=== PATIENT | female | born 1985 | race Caucasian/White ===

== ENCOUNTER 2016-11-23 13:31 | Day surgery (SDC) | payer OTHER ==
[~2016-11-23] VITALS: Ht 160 cm; Wt 93.9 kg
[~2016-11-23 13:31] MED LIST: No meds per pt.
[2016-11-23 13:56] VITALS: BP 119/78
[2016-11-23] MEDS ORDERED: LACTATED RINGERS 1,000 ML IV SCH (14:00)
[2016-11-23 14:26] LABS: HCG UR OBC PASS
[2016-11-23] MEDS ORDERED: SILVER NITRATE STICK TP ONE (14:33)
[2016-11-23] MEDS ORDERED: LIDOCAINE/PF 1.5%-EPI 1:200K, 30ML ONE (14:33)
[2016-11-23] MEDS ORDERED: VASOPRESSIN 20 UNIT/ML, 1ML ONE (14:33)
[2016-11-23] MEDS ORDERED: FENTANYL PF 100 MCG/2ML ONE ×2 (15:21→16:40)
[2016-11-23] MEDS ORDERED: MIDAZOLAM 1 MG/ML, 2ML ONE (15:21)
[2016-11-23] MEDS ORDERED: PROMETHAZINE 25 MG/ML, 1ML IV PRN (15:30)
[2016-11-23] MEDS ORDERED: MIDAZOLAM 1 MG/ML, 2ML IV PRN (15:30)
[2016-11-23] MEDS ORDERED: HYDROcodone/APAP 7.5-325MG/15ML UDC PO PRN (15:30)
[2016-11-23] MEDS ORDERED: HYDROmorphone 1 MG/ML, 1ML IV PRN (15:30)
[2016-11-23] MEDS ORDERED: ALBUTEROL SULFATE 2.5 MG/3 ML NPPB PRN (15:30)
[2016-11-23] MEDS ORDERED: METOCLOPRAMIDE 5 MG/ML, 2ML IV PRN (15:30)
[2016-11-23] MEDS ORDERED: ONDANSETRON 2MG/ML, 2ML IVPush PRN (15:30)
[2016-11-23] MEDS ORDERED: hydrALAzine 20 MG/ML, 1ML IV PRN (15:30)
[2016-11-23] MEDS ORDERED: ACETAMINOPHEN 325 MG TABLET PO PRN (15:30)
[2016-11-23] MEDS ORDERED: EPHEDRINE 50 MG/ML, 1ML IVPush PRN (15:30)
[2016-11-23] MEDS ORDERED: LABETALOL 5MG/ML, 20ML IV PRN (15:30)
[2016-11-23] MEDS ORDERED: GLYCOPYRROLATE 0.2MG/1ML ONE (15:46)
[2016-11-23] MEDS ORDERED: SUCCINYLCHOLINE 20 MG/ML, 10ML ONE (15:46)
[2016-11-23] MEDS ORDERED: ROCURONIUM 10 MG/ML ONE (15:46)
[2016-11-23] MEDS ORDERED: ONDANSETRON 2MG/ML, 2ML ONE (15:46)
[2016-11-23] MEDS ORDERED: DEXAMETHASONE 4 MG/ML, 1ML ONE (15:46)
[2016-11-23] MEDS ORDERED: PROPOFOL 10 MG/ML, 20ML ONE (15:46)
[2016-11-23] MEDS ORDERED: PROMETHAZINE 25 MG/ML, 1ML ONE (16:40)
[2016-11-23] MEDS ORDERED: HYDROcodone/APAP 7.5-325MG/15ML UDC ONE (16:55)
[2016-11-23] MEDS: FENTANYL PF 100 MCG/2ML IV PRN ×2 (16:55→17:00)
== END 2016-11-23 18:15 ==
LOC: OUT 13:31
PROVIDERS: ATTEND Specialist
DX: N84.0 Polyp of corpus uteri (principal); Z88.1 Allergy status to other antibiotic agents; Z88.0 Allergy status to penicillin; Z88.8 Allergy status to other drugs, medicaments and biological substances
CPT/HCPCS: 58558; 81025; 88305; J0330; J1100; J2250; J2405; J2550; J2704; J3010; J7120; J3490

== ENCOUNTER 2017-11-05 15:49 | Emergency (ER) | payer OTHER ==
[~2017-11-05] VITALS: Ht 160 cm; Wt 88.4 kg
[2017-11-05 16:46] LABS: BASOPHILS # (AUTO) 0.04 x10^3/uL (0-0.1); BASOPHILS % (AUTO) 0 % (0-1); EOSINOPHILS # (AUTO) 0.09 x10^3/uL (0-0.4); EOSINOPHILS % (AUTO) 1 % (1-7); LYMPHOCYTES # (AUTO) 2.31 x10^3/uL (1-3.4); LYMPHOCYTES % (AUTO) 19 % (22-44); MD NO; MEAN CORPUSCULAR HEMOGLOBIN 31.4 pg (27.0-34.8); MEAN CORPUSCULAR HGB CONC 34.4 g/dL (32.4-35.8); MEAN CORPUSCULAR VOLUME 91.2 fL (80-100); MONOCYTES # (AUTO) 0.63 x10^3/uL (0.2-0.8); MONOCYTES % (AUTO) 5 % (2-9); NEUTROPHILS # (AUTO) 8.85 x10^3/uL (1.8-6.8); NEUTROPHILS % (AUTO) 74 % (42-75); PLATELET COUNT 304 x10^3/uL (130-400); RED BLOOD COUNT 4.57 x10^6/uL (3.82-5.3); RED CELL DISTRIBUTION WIDTH 12.8 % (9.6-15.2)
[2017-11-05 16:56] LABS: ALBUMIN 3.7 g/dL (3.4-5.0); ANION GAP 9 mmol/L (5-15); CALCIUM 8.5 mg/dL (8.5-10.1); CHLORIDE 110 mmol/L (98-107)
[2017-11-05 17:14] LABS: ALANINE AMINOTRANSFERASE 26 U/L (12-78); ALKALINE PHOSPHATASE 50 U/L (45-117); BILIRUBIN,TOTAL 0.4 mg/dL (0.2-1.0); CREATININE 0.77 mg/dL (0.55-1.02); TOTAL PROTEIN 7.4 g/dL (6.4-8.2)
[2017-11-05] MEDS ORDERED: OXYcodone/APAP 5/325MG TABLET ONE (17:16)
[2017-11-05] MEDS ORDERED: ONDANSETRON ODT 4 MG ONE (17:16)
[2017-11-05] MEDS ORDERED: OXYcodone/APAP 5/325MG TABLET PO ONE ×2 (17:30→18:30)
[2017-11-05] MEDS ORDERED: ONDANSETRON ODT 4 MG PO ONE (17:30)
[2017-11-05] MEDS ORDERED: MISOPROSTOL 200 MCG TABLET PR ONE (18:30)
[2017-11-05 19:59] VITALS: BP 118/80
== END 2017-11-05 20:17 | disposition home or self-care (01) ==
LOC: ED 19:55
DX: O03.9 Complete or unspecified spontaneous abortion without complication (principal); Z88.2 Allergy status to sulfonamides; Z88.1 Allergy status to other antibiotic agents; Z88.8 Allergy status to other drugs, medicaments and biological substances
CPT/HCPCS: 36415; 80053; 84702; 85025; 86901; 88305; 99284; Q0162

== ENCOUNTER 2017-11-07 10:13 | Day surgery (SDC) | payer OTHER ==
[2017-11-06 14:54] VITALS: BP 115/78
[~2017-11-07] VITALS: Ht 160 cm; Wt 88.6 kg
[2017-11-07] MEDS ORDERED: LACTATED RINGERS 1,000 ML IV SCH (10:37)
[2017-11-07] MEDS ORDERED: MISOPROSTOL 200 MCG TABLET ONE (11:14)
[2017-11-07] MEDS ORDERED: METHYLERGONOVINE 0.2 MG/ML IM ONE (11:14)
[2017-11-07] MEDS ORDERED: OXYTOCIN 10 UNITS/ML, 1ML ONE (11:14)
[2017-11-07] MEDS ORDERED: FENTANYL PF 100 MCG/2ML ONE (11:53)
[2017-11-07] MEDS ORDERED: MIDAZOLAM 1 MG/ML, 2ML ONE (11:53)
[2017-11-07] MEDS ORDERED: PROPOFOL 10 MG/ML, 20ML ONE (11:57)
[2017-11-07] MEDS ORDERED: ONDANSETRON 2MG/ML, 2ML ONE ×2 (12:13)
[2017-11-07] MEDS ORDERED: DEXAMETHASONE 4 MG/ML, 1ML ONE ×2 (12:13)
[2017-11-07] MEDS ORDERED: FENTANYL PF 100 MCG/2ML IV PRN (12:30)
[2017-11-07] MEDS ORDERED: OXYcodone 5 MG/5 ML ORAL.SOL UDC PO PRN (12:30)
[2017-11-07] MEDS ORDERED: ONDANSETRON 2MG/ML, 2ML IV PRN (12:30)
[2017-11-07] MEDS ORDERED: HYDROmorphone 1 MG/ML, 1ML IV PRN (12:30)
[2017-11-07] MEDS ORDERED: PROMETHAZINE 12.5 MG SUPP PR PRN (12:30)
[2017-11-07] MEDS ORDERED: ALBUTEROL SULFATE 2.5 MG/3 ML NPPB PRN (12:30)
[2017-11-07] MEDS ORDERED: LABETALOL 5MG/ML, 20ML IV PRN (12:30)
[2017-11-07] MEDS ORDERED: MEPERIDINE/PF 25MG/0.5ML IVPush PRN (12:30)
[2017-11-07] MEDS ORDERED: ONDANSETRON ODT 8 MG PO PRN (12:30)
[2017-11-07] MEDS ORDERED: LORazepam 2 MG/ML, 1ML IVPush PRN (12:30)
[2017-11-07] MEDS ORDERED: SCOPOLAMINE PATCH, 1.5MG PATCH.TD72 TD PRN (12:30)
[2017-11-07] MEDS ORDERED: MIDAZOLAM 1 MG/ML, 2ML IV PRN (12:30)
[2017-11-07] MEDS ORDERED: hydrALAzine 20 MG/ML, 1ML IV PRN (12:30)
[2017-11-07] MEDS ORDERED: PROMETHAZINE 25 MG/ML, 1ML IV PRN (12:30)
[2017-11-07] MEDS ORDERED: MEPERIDINE/PF 50 MG/ML ONE (12:44)
== END 2017-11-07 14:50 ==
LOC: OUT 10:13
PROVIDERS: ATTEND Specialist
DX: O02.1 Missed abortion (principal); Z3A.10 10 weeks gestation of pregnancy; Z88.1 Allergy status to other antibiotic agents; Z88.0 Allergy status to penicillin; Z88.8 Allergy status to other drugs, medicaments and biological substances; Z88.2 Allergy status to sulfonamides
CPT/HCPCS: 36415; 59820; 86850; 86900; 88305; J1100; J2175; J2250; J2405; J2704; J3010; J7120; J2210; J2590